=== PATIENT | female | born 1995 | race Caucasian/White ===

== ENCOUNTER 2018-10-13 11:02 | Emergency (ER) | payer BC, OTHER ==
[~2018-10-13] VITALS: Ht 165.1 cm; Wt 77.1 kg
--- OUTSIDE RECORDS SUMMARY | 2018-10-13 11:09 | XMS REPORT ---
Author Author Edelmira Huynh Organization [facility] Address [address] [place], [place] [id number] Care Team Providers Care Business Continuity Manager Name Role Phone Edelmira Huynh PCP Edelmira Huynh PreferredProvider Allergies and Adverse Reactions Name Reaction Notes NO KNOWN DRUG ALLERGIES Plan of Treatment Planned Activity Comments Planned Date Planned Time Plan/Goal Urine Culture, [place] Count 10/15/2015 12:00 AM HIV AG/AB COMBO 07/25/2018 12:00 AM CBC With Auto Differential 09/11/2014 12:00 AM CMP (comprehensive metabolic panel) 09/11/2014 12:00 AM CRP 09/11/2014 12:00 AM RF (rheumatoid factor) 09/11/2014 12:00 AM Medications Active Name Start Date Estimated Completion Date SIG Comments Augmentin 875-125 mg oral tablet 07/25/2018 08/01/2018 take 1 tablet by oral route every 12 hours for 7 days Name Start Date Expiration Date SIG Comments amoxicillin 250 mg oral tablet,chewable 06/14/2009 06/24/2009 chew 2 tablets (500 mg) by oral route every 12 hours for 10 days clobetasol 0.05 % topical gel 08/13/2009 08/27/2009 apply a thin layer by topical route 2 times per day to the affected area(s) for 14 days amoxicillin 400 mg/5 mL oral suspension for reconstitution 10/05/2009 10/15/2009 take 11 milliliters (880 mg) by oral route every 12 hours for 10 days Lortab Elixir 7.5-500 mg/15 mL oral solution 10/05/2009 10/12/2009 take 15 milliliters by oral route every 6 hours as needed for pain for 7 days Flexeril 5 mg oral tablet 01/25/2010 01/28/2010 take 1 tablet by oral route 2 times a day for 3 days Cortisporin 3.5-10,000-1 mg/mL-unit/mL-% otic drops,suspension 04/05/2010 04/12/2010 instill 4 drops into right ear by otic route 3 times per day for 7 days [id number]-[id number]-GR 3.5-10,000-1 mg/mL-unit/mL-% otic solution 05/12/2010 05/19/2010 INSTILL 4 DROPS IN RIGHT EARY THREE TIMES A DAY FOR 7 DAYS permethrin 5 % topical cream 09/06/2010 09/08/2010 apply (thoroughly massage into skin from head to soles of feet) by topical route once leave on for 8-14 hours and then remove by thorough washing triamcinolone acetonide 0.1 % topical cream 03/20/2011 03/27/2011 apply a thin layer to the affected area(s) by topical route 2 times per day for 7 days Depo-Provera intramuscular amoxicillin 500 mg oral capsule 03/11/2014 03/21/2014 take 1 capsule (500 mg) by oral route 3 times per day for 10 days azithromycin 250 mg oral tablet 07/21/2014 07/26/2014 take 2 tablets (500 mg) by oral route once daily for 1 day then 1 tablet (250 mg) by oral route once daily for 4 days Singulair 10 mg oral tablet 09/11/2014 take 1 tablet (10 mg) by oral route once daily in the evening Miralax 17 gram/dose oral powder 10/15/2015 take 17 gram mixed with 8 oz. water, juice, soda, coffee or tea by oral route once daily Tessalon Perles 100 mg oral capsule 12/01/2015 take 1 capsule (100 mg) by oral route 3 times per day as needed for cough hydrocortisone 2.5 % topical ointment 05/10/2016 apply a thin layer to the affected area(s) by topical route once daily pantoprazole 40 mg oral tablet,delayed release (DR/EC) 11/13/2017 take 1 tablet (40 mg) by oral route once daily Discontinued Name Start Date Discontinued Date SIG Comments Daytrana 30 mg/9 hr transdermal patch 24 hour 06/14/2009 08/29/2011 apply 1 patch by transdermal route daily prednisone 10 mg oral tablet 09/27/2010 03/20/2011 take 4 tabs x 2 days, 3 tabs x 2 days, 2 tabs x 2 day then 1 tab x 4 days. triamcinolone acetonide 0.5 % topical cream 08/29/2011 08/14/2012 apply a thin layer to the affected area(s) by topical route 2 times per day Reanna Allergy 180 mg oral tablet 06/03/2013 03/11/2014 take 1 tablet (180 mg) by oral route once daily Sudafed 12 Hour 120 mg oral tablet extended release 06/03/2013 07/17/2013 take 1 tablet (120 mg) by oral route every 12 hours Flonase 50 mcg/actuation nasal spray,suspension 07/17/2013 03/11/2014 inhale 1 spray (50 mcg) in each nostril by intranasal route once daily Medrol (Daniele) 4 mg oral tablets,dose pack 07/17/2013 03/11/2014 take as directed Claritin-D 12 Hour 5-120 mg oral tablet extended release 12 hr 03/11/2014 10/15/2015 take 1 tablet by oral route 2 times per day as needed cyclobenzaprine 10 mg oral tablet 10/15/2015 Sudafed 12 Hour 120 mg oral tablet extended release 07/21/2014 07/21/2014 take one tab every 12 hours as needed for nasal congestion Flonase Allergy Relief 50 mcg/actuation nasal spray,suspension 07/21/2014 09/11/2014 inhale 1 puff by nasal route daily guaifenesin 400 mg oral tablet 07/21/2014 09/11/2014 take 1 tablet by oral route every 6 hours as needed prednisone 20 mg oral tablet 09/11/2014 10/15/2015 take 1 tablet by oral route daily Flonase Allergy Relief 50 mcg/actuation nasal spray,suspension 09/21/2014 10/15/2015 inhale 1 puff by nasal route 2 times a day Problem List Description Status Onset ADHD Active Vital Signs Date Time BP-Sys(mm[Hg] BP-Hermelinda(mm[Hg]) HR(bpm) RR(rpm) Temp WT HT HC BMI BSA BMI Percentile O2 Sat(%) 07/25/2018 11:18:00 AM 116 mmHg 68 mmHg 74 bpm 16 rpm 97.7 F 168 lbs 65 in 27.9564 kg/m 1.8694 m 99 % 11/13/2017 9:51:00 AM 124 mmHg 74 mmHg 77 bpm 18 rpm 98.4 F 156.375 lbs 65 in 26.02 kg/m2 1.80 m2 99 % 10/15/2015 9:36:00 AM 124 mmHg 64 mmHg 76 bpm 18 rpm 97.9 F 171 lbs 65 in 28.4556 kg/m 1.8861 m 97 % 09/11/2014 9:51:00 AM 122 mmHg 64 mmHg 70 bpm 18 rpm 98.3 F 157.5 lbs 65 in 26.21 kg/m2 1.81 m2 98 % 07/21/2014 8:55:00 AM 124 mmHg 62 mmHg 101 bpm 18 rpm 98.7 F 158 lbs 65 in 26.2923 kg/m 1.8129 m 97 % 03/11/2014 2:42:00 PM 65 bpm 20 rpm 97.2 F 157.2 lbs 65 in 26.16 kg/m2 1.81 m2 0 % 98 % 07/17/2013 10:32:00 AM 124 mmHg 64 mmHg 90 bpm 18 rpm 97.2 F 139 lbs 65 in 23.1306 kg/m 1.7004 m 0 % 98 % 06/03/2013 8:42:00 AM 63 bpm 18 rpm 96.8 F 139.125 lbs 65 in 23.15 kg/m2 1.70 m2 65.4 % 98 % 12/11/2012 3:31:00 PM 122 mmHg 64 mmHg 76 bpm 18 rpm 97.6 F 127.5 lbs 65 in 21.2169 kg/m 1.6286 m 45 % 97 % 08/14/2012 3:17:00 PM 116 mmHg 70 mmHg 72 bpm 16 rpm 98.2 F 131 lbs 65 in 21.80 kg/m2 1.65 m2 53.1 % 08/29/2011 2:35:00 PM 118 mmHg 60 mmHg 68 bpm 18 rpm 98.4 F 130.25 lbs 65 in 21.6745 kg/m 1.6461 m 54.9 % 03/20/2011 3:07:00 PM 110 mmHg 58 mmHg 64 bpm 18 rpm 97.6 F 142.25 lbs 65 in 23.67 kg/m2 1.72 m2 75.2 % 09/27/2010 3:13:00 PM 120 mmHg 72 mmHg 63 bpm 16 rpm 96.6 F 143.5 lbs 97 % 09/06/2010 3:37:00 PM 110 mmHg 70 mmHg 66 bpm 18 rpm 96.7 F 135 lbs 99 % 04/05/2010 3:48:00 PM 118 mmHg 72 mmHg 72 bpm 20 rpm 97.3 F 146.375 lbs 01/25/2010 4:33:00 PM 100 mmHg 58 mmHg 72 bpm 16 rpm 97.8 F 142 lbs 10/05/2009 6:10:00 PM 108 mmHg 68 mmHg 100 bpm 20 rpm 99.1 F 130.25 lbs 08/13/2009 3:25:00 PM 108 mmHg 60 mmHg 60 bpm 20 rpm 98 F 130 lbs 06/29/2009 2:55:00 PM 94 mmHg 68 mmHg 72 bpm 24 rpm 97.5 F 128 lbs 64 in 21.9709 kg/m 1.6192 m 68 % 06/14/2009 10:46:00 AM 100 mmHg 64 mmHg 80 bpm 24 rpm 97.7 F 126 lbs 64 in 21.63 kg/m2 1.61 m2 64.9 % Social History Name Description Comments Alcohol Light Tobacco Current every day smoker 10/15/2015 - History of Procedures Date Ordered Description Order Status 03/20/2011 12:00 AM THER/PROPH/DIAG INJ SC/IM Reviewed 03/20/2011 12:00 AM Decadron 1 mg [facility]#[id number] (Trang) Reviewed 03/20/2011 12:00 AM Depo-Medrol 80 mg [facility]#[id number]-Gyelwyvo Reviewed 10/15/2015 9:48 AM URINE TEST Reviewed 10/15/2015 10:09 AM URINALYSIS AUTO W/O SCOPE Reviewed 10/15/2015 12:00 AM Decadron, Per 1 Mg [facility]# [address]-29 Reviewed 10/15/2015 12:00 AM Depo-Medrol 40mg Reviewed 10/15/2015 12:00 AM RADEX ABDOMEN COMPL W/DCBTS&/ERC VIEWS Reviewed 06/29/2009 12:00 AM Decadron Inj. 8mg- ([facility] #[address]-67 Reviewed 06/29/2009 12:00 AM Depo-Medrol 80 Mg Im/[facility]# [address]-92 Reviewed 09/14/2011 12:00 AM THER/PROPH/DIAG INJ SC/IM Reviewed 09/14/2011 12:00 AM Depo-Provera 150 Mg Reviewed 12/13/2011 12:00 AM THER/PROPH/DIAG INJ SC/IM Reviewed 12/13/2011 12:00 AM Depo-Provera 150 Mg Reviewed 03/05/2012 12:00 AM THER/PROPH/DIAG INJ SC/IM Reviewed 03/05/2012 12:00 AM Depo-Provera 150 Mg Reviewed 03/05/2012 12:00 AM URINE TEST Reviewed 06/12/2012 12:00 AM THER/PROPH/DIAG INJ SC/IM Reviewed 06/12/2012 12:00 AM Depo-Provera 150 Mg Reviewed 06/12/2012 12:00 AM URINE TEST Reviewed 08/14/2012 12:00 AM THER/PROPH/DIAG INJ SC/IM Reviewed 08/14/2012 12:00 AM Decadron, Per 1 Mg [facility]# [address]-73 Reviewed 08/14/2012 12:00 AM Depo-Medrol, Per 80 Mg [facility]#4675-9822-80 Reviewed 11/13/2017 12:00 AM COMPLETE CBC W/AUTO DIFF WBC Returned 11/13/2017 12:00 AM COMPREHEN METABOLIC PANEL Returned 09/06/2012 12:00 AM THER/PROPH/DIAG INJ SC/IM Reviewed 09/06/2012 12:00 AM Depo-Provera 150 Mg Reviewed 09/06/2012 12:00 AM URINE TEST Reviewed 12/11/2012 12:00 AM THER/PROPH/DIAG INJ SC/IM Reviewed 12/11/2012 12:00 AM Bicillin CR, 1.2 million units [facility]# 20592-851-48 Reviewed 12/11/2012 12:00 AM CHYLMD TRACH DNA AMP PROBE Reviewed 12/11/2012 12:00 AM N.GONORRHOEAE DNA AMP PROB Reviewed 12/26/2012 12:00 AM THER/PROPH/DIAG INJ SC/IM Reviewed 12/26/2012 12:00 AM Depo-Provera 150 mg Reviewed 07/25/2018 12:00 AM Decadron, Per 1 Mg [facility]# [address]-32 Reviewed 03/14/2013 12:00 AM THER/PROPH/DIAG INJ SC/IM Reviewed 03/14/2013 12:00 AM Depo-Provera 150 mg Reviewed 06/03/2013 12:00 AM THER/PROPH/DIAG INJ SC/IM Reviewed 06/03/2013 12:00 AM Decadron, Per 1 Mg [facility]# [address]-08 Reviewed 06/03/2013 12:00 AM Depo-Medrol, Per 80 Mg [facility]#6172-0241-83 Reviewed 06/03/2013 12:00 AM Depo Provera Injection, 150 mg Reviewed 10/05/2009 12:00 AM Bicillin CR (1.2) [facility]# [id number]--[facility] Reviewed 10/05/2009 12:00 AM THER/PROPH/DIAG INJ SC/IM Reviewed 09/01/2013 12:00 AM THER/PROPH/DIAG INJ SC/IM Reviewed 09/01/2013 12:00 AM Depo-Provera 150 mg Reviewed 12/17/2013 12:00 AM THER/PROPH/DIAG INJ SC/IM Reviewed 12/17/2013 12:00 AM Depo Provera Injection, 150 mg Reviewed 03/04/2014 12:00 AM Depo-Provera 150 mg Reviewed 07/21/2014 12:00 AM THER/PROPH/DIAG INJ SC/IM Reviewed 07/21/2014 12:00 AM Decadron, Per 1 Mg [facility]# [address]-96 Reviewed 07/21/2014 12:00 AM Depo-Medrol 40mg Reviewed 09/27/2010 12:00 AM IMMUNIZATION ADMIN Reviewed 09/27/2010 12:00 AM TD VACCINE NO PRSRV 7/> IM Reviewed 09/27/2010 12:00 AM THER/PROPH/DIAG INJ SC/IM Reviewed 09/27/2010 12:00 AM Depo-Medrol 120 Mg Im PAWEL Reviewed 09/01/2014 2:56 PM URINE TEST Reviewed 09/01/2014 12:00 AM THER/PROPH/DIAG INJ SC/IM Reviewed 09/01/2014 12:00 AM Depo Provera Injection, 150 mg Reviewed 12/24/2014 12:00 AM Depo Provera Injection, 150 mg Reviewed 12/24/2014 2:17 PM URINE TEST Reviewed Results Summary Date and Description Results 12/11/2012 5:46 PM SOURCE: URINE 09/01/2014 2:56 PM HCG Ur Ql neg 12/24/2014 2:17 PM Test, Urine Neg 10/15/2015 9:48 AM Test, Urine negative 10/15/2015 10:09 AM Clarity Ur clear Color Ur brown Glucose Ur-sCnc neg Bilirub Ur Ql Strip small Ketones Ur Ql Strip neg Sp Gr Ur Qn >=1.030 Hgb Ur Ql Strip small pH Ur-LsCnc 5.0 Prot Ur Ql Strip 30mg/dL Urobilinogen Ur-mCnc 0.2 E. U/dL Nitrite Ur Ql Strip neg WBC Est Ur Ql Strip Trace History Of Immunizations Name Date Admin Mfg Name Mfg Code Trade Name Lot# Route Inj Vis Given Vis Pub CVX Td 09/27/2010 sanofi pasteur PMC DECAVAC [id number] Intramuscular Left Deltoid 09/27/2010 12/13/2007 999 History of Past Illness Name Date of Onset Comments Allergic rhinitis ADHD Upper Respiratory Infection, Acute Jun 14 2009 10:56AM ADHD Jun 14 2009 10:56AM Contact Dermatitis Jun 29 2009 3:01PM Concussion With Loss Of Consciousness Jun 29 2009 3:01PM Postnasal drip Jun 29 2009 3:01PM Atopic Dermatitis Aug 13 2009 3:31PM Neck Sprain/Strain Aug 13 2009 3:31PM Acute Pharyngitis Oct 05 2009 6:11PM Otitis Media/Acute Suppurative Oct 05 2009 6:11PM Back Muscle Spasm Jan 25 2010 4:40PM Otitis Externa, Acute Apr 05 2010 3:47PM Contact Dermatitis Sep 06 2010 3:39PM Scabies Exposure Sep 06 2010 3:39PM Contact Dermatitis Sep 27 2010 3:13PM Poison Susan Sep 27 2010 3:13PM Contact Dermatitis Mar 20 2011 3:03PM Rash Of Skin Aug 29 2011 2:37PM Contraceptive Counseling Aug 29 2011 2:37PM Rhinitis, Allergic Aug 29 2011 2:37PM Contraceptive counseling (Depo-Provera) Sep 14 2011 3:18PM Contraceptive Management Sep 14 2011 3:18PM Contraceptive counseling (Depo-Provera) Dec 13 2011 2:47PM Contraceptive counseling (Depo-Provera) Mar 05 2012 4:52PM Contraceptive counseling (Depo-Provera) Jun 12 2012 4:16PM Rash Of Skin Aug 14 2012 3:19PM Contraceptive counseling (Depo-Provera) Sep 06 2012 2:49PM Upper Respiratory Infections Dec 11 2012 3:33PM High-Risk Sexual Behavior Dec 11 2012 3:33PM Contraceptive Counseling Dec 11 2012 3:33PM Contraceptive counseling (Depo-Provera) Dec 26 2012 11:56AM Contraceptive counseling (Depo-Provera) Mar 14 2013 4:41PM Rhinitis, Allergic Jun 03 2013 8:45AM Contraceptive Management Jun 03 2013 8:45AM Rhinitis, Allergic Jul 17 2013 10:34AM Contraceptive counseling (Depo-Provera) Sep 01 2013 4:10PM Contraceptive counseling (Depo-Provera) Dec 17 2013 4:39PM Contraceptive counseling (Depo-Provera) Mar 04 2014 1:44PM Sinusitis, Acute Mar 11 2014 2:43PM Sinusitis Jul 21 2014 8:57AM Contraceptive counseling (Depo-Provera) Sep 01 2014 2:56PM Joint pain Sep 11 2014 9:53AM Fatigue Sep 11 2014 9:53AM Contact dermatitis Sep 11 2014 9:53AM Contraception management Dec 24 2014 2:17PM Left lower quadrant pain Oct 15 2015 9:38AM Nausea Oct 15 2015 9:38AM Diarrhea Oct 15 2015 9:38AM Allergic rhinitis, unspecified allergic rhinitis type Oct 15 2015 9:38AM Epigastric pain Nov 13 2017 9:53AM Hematemesis Nov 13 2017 9:53AM Reflux gastritis Nov 13 2017 9:53AM Acute sinusitis Jul 25 2018 11:20AM Exposure to HIV Jul 25 2018 11:20AM Payers Insurance Name Company Name Plan Name Plan Number Policy Number Policy Group Number Start Date [facility] [id number] [facility] [id number] [id number], 2007 History of Encounters Visit Date Visit Type Provider 07/25/2018 Office visit Edelmira Huynh ROOFING TECHNICIAN 11/13/2017 Office visit Edelmira Huynh ROOFING TECHNICIAN 10/15/2015 Office visit Edelmira Huynh ROOFING TECHNICIAN 12/24/2014 Nurse visit Edelmira Huynh ROOFING TECHNICIAN 12/09/2014 Voided Edelmira Huynh ROOFING TECHNICIAN 09/11/2014 Office visit Edelmira Huynh ROOFING TECHNICIAN 09/01/2014 Nurse visit Edelmira Huynh ROOFING TECHNICIAN 07/21/2014 Office visit 07/21/2014 Office visit Edelmira Huynh ROOFING TECHNICIAN 03/11/2014 Office visit Holly Ellis ROOFING TECHNICIAN 03/04/2014 Nurse visit Bernardo Walker ROOFING TECHNICIAN 12/17/2013 Nurse visit Edelmira Huynh ROOFING TECHNICIAN 09/01/2013 Nurse visit Edelmira Huynh ROOFING TECHNICIAN 07/17/2013 Office visit Edelmira Huynh ROOFING TECHNICIAN 06/03/2013 Office visit Edelmira Huynh ROOFING TECHNICIAN 03/14/2013 Nurse visit Bernardo Walker ROOFING TECHNICIAN 12/26/2012 Nurse visit Edelmira Huynh ROOFING TECHNICIAN 12/11/2012 Office visit Edelmira Huynh ROOFING TECHNICIAN 09/06/2012 Nurse visit Holly Ellis ROOFING TECHNICIAN 08/14/2012 Office visit Holly Ellis ROOFING TECHNICIAN 06/12/2012 Nurse visit Holly Ellis ROOFING TECHNICIAN 06/12/2012 Voided Edelmira Huynh ROOFING TECHNICIAN 03/05/2012 Nurse visit Edelmira Huynh ROOFING TECHNICIAN 12/13/2011 Nurse visit Edelmira Huynh ROOFING TECHNICIAN 09/14/2011 Nurse visit Edelmira Huynh ROOFING TECHNICIAN 08/29/2011 Office visit Edelmira Huynh ROOFING TECHNICIAN 03/20/2011 Office visit Edelmira Huynh ROOFING TECHNICIAN 09/27/2010 Office visit Marcela Camarena MD 09/06/2010 Office visit Edelmira Huynh ROOFING TECHNICIAN 04/05/2010 Office visit Maira SMITH 01/25/2010 Office visit Sonia LEON 10/05/2009 Office visit Sonai LEON 08/13/2009 Office visit Terrie SMITH 06/29/2009 Office visit Terrie SMITH 06/14/2009 Office visit Terrie SMITH 03/10/2009 Office visit Maira SMITH
--- OUTSIDE RECORDS SUMMARY | 2018-10-13 11:09 | XMS REPORT ---
Author Edelmira Jenkins Organization [facility] Address [address] [place], [place] [id number] Care Team Providers Care Airplane Rental Clerk Name Role Phone Edelmira Huynh PCP Unavailable Allergies and Adverse Reactions Name Reaction Notes NO KNOWN DRUG ALLERGIES Plan of Treatment Planned Activity Comments Planned Date Planned Time Plan/Goal X-RAY EXAM OF ABDOMEN 10/15/2015 12:00 AM THER/PROPH/DIAG INJ SC/IM 09/14/2011 12:00 AM THER/PROPH/DIAG INJ SC/IM 03/05/2012 12:00 AM THER/PROPH/DIAG INJ SC/IM 06/12/2012 12:00 AM COMPLETE CBC W/AUTO DIFF WBC 09/11/2014 12:00 AM COMPREHEN METABOLIC PANEL 09/11/2014 12:00 AM C-REACTIVE PROTEIN 09/11/2014 12:00 AM RHEUMATOID FACTOR QUANT 09/11/2014 12:00 AM Medications Active Name Start Date Estimated Completion Date SIG Comments Depo-Provera intramuscular Singulair 10 mg oral tablet 09/11/2014 take 1 tablet (10 mg) by oral route once daily in the evening Miralax 17 gram/dose oral powder 10/15/2015 take 17 gram mixed with 8 oz. water, juice, soda, coffee or tea by oral route once daily Name Start Date Expiration Date SIG Comments [...] 3 times per day for 7 days [id number]-LT 3.5-10,000-1 mg/mL-unit/mL-% otic solution 05/12/2010 05/19/2010 INSTILL [...] 2 times per day for 7 days amoxicillin 500 mg oral capsule 03/11/2014 03/21/2014 take 1 capsule (500 mg) by oral route 3 times per day for 10 days azithromycin 250 mg oral tablet 07/21/2014 07/26/2014 take 2 tablets (500 mg) by oral route once daily for 1 day then 1 tablet (250 mg) by oral route once daily for 4 days Discontinued Name Start Date Discontinued Date SIG [...] HC BMI BSA BMI Percentile O2 Sat(%) 10/15/2015 9:36:00 AM 124 mmHg 64 mmHg 76 bpm 18 rpm 97.9 F 171 lbs 65 in 28.46 kg/m2 1.89 m2 97 % 09/11/2014 9:51:00 AM 122 mmHg 64 mmHg 70 bpm 18 rpm 98.3 F 157.5 lbs 65 in 26.2091 kg/m 1.8101 m 98 % 07/21/2014 8:55:00 AM 124 mmHg 62 mmHg 101 bpm 18 rpm 98.7 F 158 lbs 65 in 26.29 kg/m2 1.81 m2 97 % 03/11/2014 2:42:00 PM 65 bpm 20 rpm 97.2 F 157.2 lbs 65 in 26.1592 kg/m 1.8084 m 0 % 98 % 07/17/2013 10:32:00 AM 124 mmHg 64 mmHg 90 bpm 18 rpm 97.2 F 139 lbs 65 in 23.13 kg/m2 1.70 m2 0 % 98 % 06/03/2013 8:42:00 AM 63 bpm 18 rpm 96.8 F 139.125 lbs 65 in 23.1514 kg/m 1.7012 m 65.4 % 98 % 12/11/2012 3:31:00 PM 122 mmHg 64 mmHg 76 bpm 18 rpm 97.6 F 127.5 lbs 65 in 21.22 kg/m2 1.63 m2 45 % 97 % 08/14/2012 3:17:00 PM 116 mmHg 70 mmHg 72 bpm 16 rpm 98.2 F 131 lbs 65 in 21.7993 kg/m 1.6508 m 53.1 % 08/29/2011 2:35:00 PM 118 mmHg 60 mmHg 68 bpm 18 rpm 98.4 F 130.25 lbs 65 in 21.67 kg/m2 1.65 m2 54.9 % 03/20/2011 3:07:00 PM 110 mmHg 58 mmHg 64 bpm 18 rpm 97.6 F 142.25 lbs 65 in 23.6714 kg/m 1.7202 m 75.2 % 09/27/2010 3:13:00 PM 120 mmHg [...] rpm 97.5 F 128 lbs 64 in 21.97 kg/m2 1.62 m2 68 % 06/14/2009 10:46:00 AM 100 mmHg 64 mmHg 80 bpm 24 rpm 97.7 F 126 lbs 64 in 21.6276 kg/m 1.6065 m 64.9 % Social History Name Description Comments Tobacco Never smoker 10/15/2015 - History of Procedures Date Ordered Description Order Status 03/20/2011 12:00 AM THER/PROPH/DIAG INJ SC/IM Reviewed 03/20/2011 12:00 AM Decadron [address] [facility]#[id number] (Trang) Reviewed 03/20/2011 12:00 AM Depo-Medrol [address] [facility]#[id number]-Hlclfeci Reviewed 10/15/2015 9:48 AM URINE TEST Reviewed 10/15/2015 10:09 AM URINALYSIS AUTO W/O SCOPE Reviewed 10/15/2015 12:00 AM Decadron, Per [address] [facility]# [address]-98 Reviewed 06/29/2009 12:00 AM Decadron Inj. 8mg- ([facility] #[id number] Reviewed 06/29/2009 12:00 AM Depo-Medrol 80 Mg Im/[facility]# [address]-76 Reviewed 09/14/2011 12:00 AM Depo-Provera 150 Mg Reviewed 12/13/2011 12:00 AM THER/PROPH/DIAG INJ SC/IM Reviewed 12/13/2011 12:00 AM Depo-Provera 150 Mg Reviewed 03/05/2012 12:00 AM URINE TEST Reviewed 06/12/2012 12:00 AM URINE TEST Reviewed 08/14/2012 12:00 AM THER/PROPH/DIAG INJ SC/IM Reviewed 08/14/2012 12:00 AM Decadron, Per [address] [facility]# [address]-32 Reviewed 08/14/2012 12:00 AM Depo-Medrol, Per [address] [facility]#[id number] Reviewed 09/06/2012 12:00 AM THER/PROPH/DIAG INJ SC/IM Reviewed 09/06/2012 12:00 AM Depo-Provera 150 Mg Reviewed 09/06/2012 12:00 AM URINE TEST Reviewed 12/11/2012 12:00 AM THER/PROPH/DIAG INJ SC/IM Reviewed 12/11/2012 12:00 AM Bicillin CR, 1.[address] [facility]# 26621-623-91 Reviewed 12/11/2012 12:00 AM CHYLMD TRACH DNA AMP PROBE Returned 12/11/2012 12:00 AM N.GONORRHOEAE DNA AMP PROB Returned 12/26/2012 12:00 AM THER/PROPH/DIAG INJ SC/IM Reviewed 12/26/2012 12:00 AM Depo-Provera 150 mg Reviewed 03/14/2013 12:00 AM THER/PROPH/DIAG INJ SC/IM Reviewed 03/14/2013 12:00 AM Depo-Provera 150 mg Reviewed 06/03/2013 12:00 AM THER/PROPH/DIAG INJ SC/IM Reviewed 06/03/2013 12:00 AM Decadron, Per [address] [facility]# [address]-73 Reviewed 06/03/2013 12:00 AM Depo-Medrol, Per [address] [facility]#8012-7804-08 Reviewed 06/03/2013 12:00 AM Depo Provera Injection, 150 mg Reviewed 10/05/2009 12:00 AM Bicillin CR (1.2) [facility]# [id number]--[facility] Reviewed 10/05/2009 12:00 AM THER/PROPH/DIAG INJ SC/IM Reviewed 09/01/2013 12:00 AM THER/PROPH/DIAG INJ SC/IM Reviewed 09/01/2013 12:00 AM Depo-Provera 150 mg Reviewed 12/17/2013 12:00 AM THER/PROPH/DIAG INJ SC/IM Reviewed 12/17/2013 12:00 AM Depo Provera Injection, 150 mg Reviewed 07/21/2014 12:00 AM THER/PROPH/DIAG INJ SC/IM Reviewed 07/21/2014 12:00 AM Decadron, Per [address] [facility]# [id number] Reviewed 07/21/2014 12:00 AM Depo-Medrol 40mg Reviewed [...] 2:17 PM URINE TEST Reviewed Results Summary Data and Description Results 09/01/2014 2:56 PM HCG Ur Ql neg [...] CVX Td 09/27/2010 sanofi pasteur PMC DECAVAC [id number] Intramuscular Left Deltoid 09/27/2010 12/13/2007 999 History [...] allergic rhinitis type Oct 15 2015 9:38AM Payers Insurance Name Company Name Plan Name Plan Number Policy Number Policy Group Number Start Date [facility] [id number] Monday, 2007 History of Encounters Visit Date Visit Type Provider 10/15/2015 Office visit Edelmira Huynh RECORDS MANAGEMENT ANALYST 12/24/2014 Nurse visit Edelmira Huynh RECORDS MANAGEMENT ANALYST 12/09/2014 Voided Edelmira Huynh RECORDS MANAGEMENT ANALYST 09/11/2014 Office visit Edelmira Huynh RECORDS MANAGEMENT ANALYST 09/01/2014 Nurse visit Edelmira Huynh RECORDS MANAGEMENT ANALYST 07/21/2014 Office visit 07/21/2014 Office visit Edelmira Huynh RECORDS MANAGEMENT ANALYST 03/11/2014 Office visit Holly Ellis RECORDS MANAGEMENT ANALYST 03/04/2014 Nurse visit Bernardo Walker RECORDS MANAGEMENT ANALYST 12/17/2013 Nurse visit Edelmira Huynh RECORDS MANAGEMENT ANALYST 09/01/2013 Nurse visit Edelmira Huynh RECORDS MANAGEMENT ANALYST 07/17/2013 Office visit Edelmira Huynh RECORDS MANAGEMENT ANALYST 06/03/2013 Office visit Edelmira Huynh RECORDS MANAGEMENT ANALYST 03/14/2013 Nurse visit Bernardo Walker RECORDS MANAGEMENT ANALYST 12/26/2012 Nurse visit Edelmira Huynh RECORDS MANAGEMENT ANALYST 12/11/2012 Office visit Edelmira Huynh RECORDS MANAGEMENT ANALYST 09/06/2012 Nurse visit Holly Ellis RECORDS MANAGEMENT ANALYST 08/14/2012 Office visit Holly Ellis RECORDS MANAGEMENT ANALYST 06/12/2012 Nurse visit Holly Ellis RECORDS MANAGEMENT ANALYST 06/12/2012 Voided Edelmira Huynh RECORDS MANAGEMENT ANALYST 03/05/2012 Nurse visit Edelmira Huynh RECORDS MANAGEMENT ANALYST 12/13/2011 Nurse visit Edelmira Huynh RECORDS MANAGEMENT ANALYST 09/14/2011 Nurse visit Edelmira Huynh RECORDS MANAGEMENT ANALYST 08/29/2011 Office visit Edelmira Huynh RECORDS MANAGEMENT ANALYST 03/20/2011 Office visit Edelmira Huynh RECORDS MANAGEMENT ANALYST 09/27/2010 Office visit Marcela Camarena MD 09/06/2010 Office visit Edelmira Huynh RECORDS MANAGEMENT ANALYST 04/05/2010 Office visit Maira SMITH 01/25/2010 Office visit Sonia LEON 10/05/2009 Office visit Sonia LEON 08/13/2009 Office visit Terrie SMITH 06/29/2009 Office visit Terrie SMITH 06/14/2009 Office visit Terrie SMITH 03/10/2009 Office visit Maira SMITH
--- OUTSIDE RECORDS SUMMARY | 2018-10-13 11:10 | XMS REPORT ---
Author Author [facility] Organization [facility] Address [address] [place], [place] [address] Care Team Providers Care Profiling Machine Set Up Operator Name Role Phone PCP Unavailable Allergies and Adverse Reactions Name Reaction Notes NO KNOWN DRUG ALLERGIES Plan of Treatment Planned Activity Comments Planned Date Planned Time Plan/Goal COMPLETE CBC W/AUTO DIFF WBC 09/11/2014 12:00 AM COMPREHEN METABOLIC PANEL 09/11/2014 12:00 AM C-REACTIVE PROTEIN 09/11/2014 12:00 AM RHEUMATOID FACTOR QUANT 09/11/2014 12:00 AM Medications Active Name Start Date Estimated Completion Date SIG Comments Depo-Provera intramuscular Claritin-D 12 Hour oral tablet extended release 12 hr 5-120 mg 03/11/2014 take 1 tablet by oral route 2 times per day as needed cyclobenzaprine oral tablet 10 mg prednisone oral tablet 20 mg 09/11/2014 take 1 tablet by oral route daily Singulair oral tablet 10 mg 09/11/2014 take 1 tablet (10 mg) by oral route once daily in the evening Name Start Date Expiration Date SIG Comments Amoxicillin Oral Tablet, Chewable 250 mg 06/14/2009 06/24/2009 chew 2 tablets (500 mg) by oral route every 12 hours for 10 days Clobetasol Topical Gel 0.05 % 08/13/2009 08/27/2009 apply a thin layer by topical route 2 times per day to the affected area(s) for 14 days Amoxicillin Oral Suspension for Reconstitution 400 mg/5 mL 10/05/2009 10/15/2009 take 11 milliliters (880 mg) by oral route every 12 hours for 10 days Lortab Elixir Oral Solution 7.5-500 mg/15 mL 10/05/2009 10/12/2009 take 15 milliliters by oral route every 6 hours as needed for pain for 7 days Flexeril Oral Tablet 5 mg 01/25/2010 01/28/2010 take 1 tablet by oral route 2 times a day for 3 days Cortisporin Otic Drops, Suspension 3.5-10,000-1 mg-unit/mL-% 04/05/2010 04/12/2010 instill 4 drops into right ear by otic route 3 times per day for 7 days [id number] Otic Solution 3.5-10,000-1 mg-unit/mL- % 05/12/2010 05/19/2010 INSTILL 4 DROPS IN RIGHT EARY THREE TIMES A DAY FOR 7 DAYS permethrin Topical Cream 5 % 09/06/2010 09/08/2010 apply (thoroughly massage into skin from head to soles of feet) by topical route once leave on for 8-14 hours and then remove by thorough washing triamcinolone acetonide Topical Cream 0.1 % 03/20/2011 03/27/2011 apply a thin layer to the affected area(s) by topical route 2 times per day for 7 days amoxicillin oral capsule 500 mg 03/11/2014 03/21/2014 take 1 capsule (500 mg) by oral route 3 times per day for 10 days azithromycin oral tablet 250 mg 07/21/2014 07/26/2014 take 2 tablets (500 mg) by oral route once daily for 1 day then 1 tablet (250 mg) by oral route once daily for 4 days Discontinued Name Start Date Discontinued Date SIG Comments Daytrana Transdermal Patch 24 hr 30 mg/9 06/14/2009 08/29/2011 apply 1 patch by transdermal route daily prednisone Oral Tablet 10 mg 09/27/2010 03/20/2011 take 4 tabs x 2 days, 3 tabs x 2 days, 2 tabs x 2 day then 1 tab x 4 days. triamcinolone acetonide Topical Cream 0.5 % 08/29/2011 08/14/2012 apply a thin layer to the affected area(s) by topical route 2 times per day Reanna Allergy oral tablet 180 mg 06/03/2013 03/11/2014 take 1 tablet (180 mg) by oral route once daily Sudafed 12 Hour oral tablet extended release 120 mg 06/03/2013 07/17/2013 take 1 tablet (120 mg) by oral route every 12 hours Flonase nasal spray,suspension 50 mcg/actuation 07/17/2013 03/11/2014 inhale 1 spray (50 mcg) in each nostril by intranasal route once daily Medrol (Daniele) oral tablets,dose pack 4 mg 07/17/2013 03/11/2014 take as directed Sudafed 12 Hour oral tablet extended release 120 mg 07/21/2014 07/21/2014 take one tab every 12 hours as needed for nasal congestion Flonase Allergy Relief nasal spray,suspension 50 mcg/actuation 07/21/2014 09/11/2014 inhale 1 puff by nasal route daily guaifenesin oral tablet 400 mg 07/21/2014 09/11/2014 take 1 tablet by oral route every 6 hours as needed Problem List Description Status Onset ADHD Active Vital Signs Date Time BP-Sys(mm[Hg] BP-Hermelinda(mm[Hg]) HR(bpm) RR(rpm) Temp WT HT HC BMI BSA BMI Percentile O2 Sat(%) 09/11/2014 9:51:00 AM 122 mmHg 64 mmHg [...] 64.9 % Social History Name Description Comments Student (High school ) Tobacco Never smoker History of Procedures Date Ordered Description Order Status 03/20/2011 12:00 AM THER/PROPH/DIAG INJ SC/IM Reviewed 12/13/2011 12:00 AM THER/PROPH/DIAG INJ SC/IM Reviewed 03/05/2012 12:00 AM URINE TEST Reviewed 06/12/2012 12:00 AM URINE TEST Reviewed 08/14/2012 12:00 AM THER/PROPH/DIAG INJ SC/IM Reviewed 09/06/2012 12:00 AM THER/PROPH/DIAG INJ SC/IM Reviewed 09/06/2012 12:00 AM URINE TEST Reviewed 12/11/2012 12:00 AM THER/PROPH/DIAG INJ SC/IM Reviewed 12/11/2012 12:00 AM CHYLMD TRACH DNA AMP PROBE Returned 12/11/2012 12:00 AM N.GONORRHOEAE DNA AMP PROB Returned 12/26/2012 12:00 AM THER/PROPH/DIAG INJ SC/IM Reviewed 03/14/2013 12:00 AM THER/PROPH/DIAG INJ SC/IM Reviewed 06/03/2013 12:00 AM THER/PROPH/DIAG INJ SC/IM Reviewed 10/05/2009 12:00 AM THER/PROPH/DIAG INJ SC/IM Reviewed 09/01/2013 12:00 AM THER/PROPH/DIAG INJ SC/IM Reviewed 12/17/2013 12:00 AM THER/PROPH/DIAG INJ SC/IM Reviewed 07/21/2014 12:00 AM THER/PROPH/DIAG INJ SC/IM Reviewed 09/27/2010 12:00 AM IMMUNIZATION ADMIN Reviewed 09/27/2010 12:00 AM TD VACCINE NO PRSRV 7/> IM Reviewed 09/27/2010 12:00 AM THER/PROPH/DIAG INJ SC/IM Reviewed 09/01/2014 2:56 PM URINE TEST Reviewed 09/01/2014 12:00 AM THER/PROPH/DIAG INJ SC/IM Reviewed Results Summary Data and Description Results 09/01/2014 2:56 PM HCG Ur Ql neg History Of Immunizations Name Date Admin Mfg Name Mfg Code Trade Name Lot# Route Inj Vis Given Vis Pub CVX Td 09/27/2010 sanofi pasteur PMC DECAVAC [id number] Intramuscular Left Deltoid 09/27/2010 12/13/2007 999 History of Past Illness Name Date of Onset Comments Allergic Rhinitis ADHD Upper Respiratory Infection, Acute Jun 14 [...] 9:53AM Contact dermatitis Sep 11 2014 9:53AM Payers Insurance Name Company Name Plan Name Plan Number Policy Number Policy Group Number Start Date [facility] [id number] Monday, 2007 History of Encounters Visit Date Visit Type Provider 09/11/2014 Office visit Edelmira Huynh BIOMEDICAL ENGINEERING AIDE 09/01/2014 Nurse visit Edelmira Huynh BIOMEDICAL ENGINEERING AIDE 07/21/2014 Office visit Edelmira Huynh BIOMEDICAL ENGINEERING AIDE 03/11/2014 Office visit Holly Ellis BIOMEDICAL ENGINEERING AIDE 03/04/2014 Nurse visit Bernardo Walker BIOMEDICAL ENGINEERING AIDE 12/17/2013 Nurse visit Edelmira Huynh BIOMEDICAL ENGINEERING AIDE 09/01/2013 Nurse visit Edelmira Huynh BIOMEDICAL ENGINEERING AIDE 07/17/2013 Office visit Edelmira Huynh BIOMEDICAL ENGINEERING AIDE 06/03/2013 Office visit Edelmira Huynh BIOMEDICAL ENGINEERING AIDE 03/14/2013 Nurse visit Bernardo Walker BIOMEDICAL ENGINEERING AIDE 12/26/2012 Nurse visit Edelmira Huynh BIOMEDICAL ENGINEERING AIDE 12/11/2012 Office visit Edelmira Huynh BIOMEDICAL ENGINEERING AIDE 09/06/2012 Nurse visit Holly Ellis BIOMEDICAL ENGINEERING AIDE 08/14/2012 Office visit Holly Ellis BIOMEDICAL ENGINEERING AIDE 06/12/2012 Voided Edelmira Huynh BIOMEDICAL ENGINEERING AIDE 06/12/2012 Nurse visit Holly Ellis BIOMEDICAL ENGINEERING AIDE 03/05/2012 Nurse visit Edelmira Huynh BIOMEDICAL ENGINEERING AIDE 12/13/2011 Nurse visit Edelmira Huynh BIOMEDICAL ENGINEERING AIDE 09/14/2011 Nurse visit Edelmira Huynh BIOMEDICAL ENGINEERING AIDE 08/29/2011 Office visit Edelmira Huynh BIOMEDICAL ENGINEERING AIDE 03/20/2011 Office visit Edelmira Huynh BIOMEDICAL ENGINEERING AIDE 09/27/2010 Office visit Marcela Camarena MD 09/06/2010 Office visit Edelmira Lino BIOMEDICAL ENGINEERING AIDE 04/05/2010 Office visit Maira SMITH 01/25/2010 Office visit Sonia LEON 10/05/2009 Office visit Sonia LEON 08/13/2009 Office visit Terrie SMITH 06/29/2009 Office visit Terrie SMITH 06/14/2009 Office visit Terrie SMITH 03/10/2009 Office visit Maira SMITH
--- OUTSIDE RECORDS SUMMARY | 2018-10-13 11:10 | XMS REPORT ---
Author Edelmira Jenkins Organization [facility] Address [address] [place], [place] [address] Care Team Providers Care Aix Administrator Name Role Phone Edelmira Huynh PCP Unavailable Allergies and Adverse Reactions Name Reaction Notes NO KNOWN DRUG ALLERGIES Plan of Treatment Planned Activity Comments Planned Date Planned Time Plan/Goal URINE CULTURE/COLONY COUNT 10/15/2015 12:00 AM X-RAY EXAM OF ABDOMEN 10/15/2015 12:00 AM [...] 3 times per day for 7 days [id number]-cwaekdtqz-OT 3.5-10,000-1 mg/mL-unit/mL-% otic solution 05/12/2010 05/19/2010 INSTILL [...] Reviewed 03/20/2011 12:00 AM Decadron 1 mg [facility]#[id number] (Trang) Reviewed 03/20/2011 12:00 AM Depo-Medrol 80 mg [facility]#[id number]-Vqiuvdah Reviewed 10/15/2015 9:48 AM URINE TEST Reviewed 10/15/2015 10:09 AM URINALYSIS AUTO W/O SCOPE Reviewed 10/15/2015 12:00 AM Decadron, Per 1 Mg [facility]# [address]-49 Reviewed 10/15/2015 12:00 AM Depo-Medrol 40mg Reviewed 06/29/2009 12:00 AM Decadron Inj. 8mg- ([facility] #[address]-34 Reviewed 06/29/2009 12:00 AM Depo-Medrol 80 Mg Im/[facility]# [address]-36 Reviewed 09/14/2011 12:00 AM Depo-Provera 150 Mg Reviewed 12/13/2011 12:00 AM THER/PROPH/DIAG INJ SC/IM Reviewed 12/13/2011 12:00 AM Depo-Provera 150 Mg Reviewed 03/05/2012 12:00 AM URINE TEST Reviewed 06/12/2012 12:00 AM URINE TEST Reviewed 08/14/2012 12:00 AM THER/PROPH/DIAG INJ SC/IM Reviewed 08/14/2012 12:00 AM Decadron, Per 1 Mg [facility]# [address]-77 Reviewed 08/14/2012 12:00 AM Depo-Medrol, Per 80 Mg [facility]#7687-4059-66 Reviewed 09/06/2012 12:00 AM THER/PROPH/DIAG INJ SC/IM Reviewed 09/06/2012 12:00 AM Depo-Provera 150 Mg Reviewed 09/06/2012 12:00 AM URINE TEST Reviewed 12/11/2012 12:00 AM THER/PROPH/DIAG INJ SC/IM Reviewed 12/11/2012 12:00 AM Bicillin CR, 1.2 million units [facility]# 64097-012-86 Reviewed 12/11/2012 12:00 AM CHYLMD TRACH DNA AMP PROBE Returned 12/11/2012 12:00 AM N.GONORRHOEAE DNA AMP PROB Returned 12/26/2012 12:00 AM THER/PROPH/DIAG INJ SC/IM Reviewed 12/26/2012 12:00 AM Depo-Provera 150 mg Reviewed 03/14/2013 12:00 AM THER/PROPH/DIAG INJ SC/IM Reviewed 03/14/2013 12:00 AM Depo-Provera 150 mg Reviewed 06/03/2013 12:00 AM THER/PROPH/DIAG INJ SC/IM Reviewed 06/03/2013 12:00 AM Decadron, Per 1 Mg [facility]# [address]-24 Reviewed 06/03/2013 12:00 AM Depo-Medrol, Per 80 Mg [facility]#7854-6829-06 Reviewed 06/03/2013 12:00 AM Depo Provera Injection, 150 mg Reviewed 10/05/2009 12:00 AM Bicillin CR (1.2) [facility]# [id number]--[facility] Reviewed 10/05/2009 12:00 AM THER/PROPH/DIAG INJ SC/IM Reviewed 09/01/2013 12:00 AM THER/PROPH/DIAG INJ SC/IM Reviewed 09/01/2013 12:00 AM Depo-Provera 150 mg Reviewed 12/17/2013 12:00 AM THER/PROPH/DIAG INJ SC/IM Reviewed 12/17/2013 12:00 AM Depo Provera Injection, 150 mg Reviewed 07/21/2014 12:00 AM THER/PROPH/DIAG INJ SC/IM Reviewed 07/21/2014 12:00 AM Decadron, Per 1 Mg [facility]# [address]-48 Reviewed 07/21/2014 12:00 AM Depo-Medrol 40mg Reviewed [...] CVX Td 09/27/2010 sanofi pasteur PMC DECAVAC [id number] Intramuscular Left Deltoid 09/27/2010 12/13/2007 999 History [...] Policy Number Policy Group Number Start Date [facility] [id number] Monday, 2007 History of Encounters Visit Date Visit Type Provider 10/15/2015 Office visit Edelmira Huynh QUAL RESEARCH MANAGER 12/24/2014 Nurse visit Edelmira Huynh QUAL RESEARCH MANAGER 12/09/2014 Voided Edelmira Huynh QUAL RESEARCH MANAGER 09/11/2014 Office visit Edelmira Huynh QUAL RESEARCH MANAGER 09/01/2014 Nurse visit Edelmira Huynh QUAL RESEARCH MANAGER 07/21/2014 Office visit 07/21/2014 Office visit Edelmira Huynh QUAL RESEARCH MANAGER 03/11/2014 Office visit Holly Ellis QUAL RESEARCH MANAGER 03/04/2014 Nurse visit Bernardo Walker QUAL RESEARCH MANAGER 12/17/2013 Nurse visit Edelmira Huynh QUAL RESEARCH MANAGER 09/01/2013 Nurse visit Edelmira Huynh QUAL RESEARCH MANAGER 07/17/2013 Office visit Edelmira Huynh QUAL RESEARCH MANAGER 06/03/2013 Office visit Edelmira Huynh QUAL RESEARCH MANAGER 03/14/2013 Nurse visit Bernardo Walker QUAL RESEARCH MANAGER 12/26/2012 Nurse visit Edelmira Huynh QUAL RESEARCH MANAGER 12/11/2012 Office visit Edelmira Huynh QUAL RESEARCH MANAGER 09/06/2012 Nurse visit Holly Ellis QUAL RESEARCH MANAGER 08/14/2012 Office visit Holly Ellis QUAL RESEARCH MANAGER 06/12/2012 Nurse visit Holly Ellis QUAL RESEARCH MANAGER 06/12/2012 Voided Edelmira Huynh QUAL RESEARCH MANAGER 03/05/2012 Nurse visit Edelmira Huynh QUAL RESEARCH MANAGER 12/13/2011 Nurse visit Edelmira Huynh QUAL RESEARCH MANAGER 09/14/2011 Nurse visit Edelmira Huynh QUAL RESEARCH MANAGER 08/29/2011 Office visit Edelmira Huynh QUAL RESEARCH MANAGER 03/20/2011 Office visit Edelmira Huynh QUAL RESEARCH MANAGER 09/27/2010 Office visit Marcela Camarena MD 09/06/2010 Office visit Edelmira Huynh QUAL RESEARCH MANAGER 04/05/2010 Office visit Maira SMITH 01/25/2010 Office visit Sonia LEON 10/05/2009 Office visit Sonia LEON 08/13/2009 Office visit Terrie SMITH 06/29/2009 Office visit Terrie SMITH 06/14/2009 Office visit Terrie SMITH 03/10/2009 Office visit Maira SMITH
--- OUTSIDE RECORDS SUMMARY | 2018-10-13 11:11 | XMS REPORT ---
Author Author [facility] Organization [facility] Address [address] [place], [place] [id number] Care Team Providers Care Crayon Sorting Machine Feeder Name Role Phone PCP Unavailable Allergies and [...] oral route once daily in the evening Flonase Allergy Relief nasal spray,suspension 50 mcg/actuation 09/21/2014 inhale 1 puff by nasal route 2 times a day Name Start Date Expiration Date SIG Comments [...] 3 times per day for 7 days [id number] Otic Solution 3.5-10,000-1 mg-unit/mL- % 05/12/2010 05/19/2010 [...] Reviewed 03/20/2011 12:00 AM Decadron 1 mg [facility] [place][id number] (Trang) Reviewed 03/20/2011 12:00 AM Depo-Medrol 80 mg [facility] [place][id number] Reviewed 06/29/2009 12:00 AM Decadron Inj. 8mg- ([facility] #[id number] Reviewed 06/29/2009 12:00 AM Depo-Medrol 80 Mg Im/[facility]# [id number] Reviewed 09/14/2011 12:00 AM THER/PROPH/DIAG INJ SC/IM Ordered 09/14/2011 12:00 AM Depo-Provera 150 Mg Reviewed 12/13/2011 12:00 AM THER/PROPH/DIAG INJ SC/IM Reviewed 12/13/2011 12:00 AM Depo-Provera 150 Mg Reviewed 03/05/2012 12:00 AM THER/PROPH/DIAG INJ SC/IM Ordered 03/05/2012 12:00 AM Depo-Provera 150 Mg Ordered 03/05/2012 12:00 AM URINE TEST Reviewed 06/12/2012 12:00 AM THER/PROPH/DIAG INJ SC/IM Ordered 06/12/2012 12:00 AM Depo-Provera 150 Mg Ordered 06/12/2012 12:00 AM URINE TEST Reviewed 08/14/2012 12:00 AM THER/PROPH/DIAG INJ SC/IM Reviewed 08/14/2012 12:00 AM Decadron, Per 1 Mg [facility] [place] [id number] Reviewed 08/14/2012 12:00 AM Depo-Medrol, Per 80 Mg [facility] [place]#[id number] Reviewed 09/06/2012 12:00 AM THER/PROPH/DIAG INJ SC/IM Reviewed 09/06/2012 12:00 AM Depo-Provera 150 Mg Reviewed 09/06/2012 12:00 AM URINE TEST Reviewed 12/11/2012 12:00 AM THER/PROPH/DIAG INJ SC/IM Reviewed 12/11/2012 12:00 AM Bicillin CR, 1.2 million units [facility] [place]# [id number] Reviewed 12/11/2012 12:00 AM CHYLMD TRACH DNA AMP PROBE Returned 12/11/2012 12:00 AM N.GONORRHOEAE DNA AMP PROB Returned 12/26/2012 12:00 AM THER/PROPH/DIAG INJ SC/IM Reviewed 12/26/2012 12:00 AM Depo-Provera 150 mg Reviewed 03/14/2013 12:00 AM THER/PROPH/DIAG INJ SC/IM Reviewed 03/14/2013 12:00 AM Depo-Provera 150 mg Reviewed 06/03/2013 12:00 AM THER/PROPH/DIAG INJ SC/IM Reviewed 06/03/2013 12:00 AM Decadron, Per 1 Mg [facility] [place]# [id number] Reviewed 06/03/2013 12:00 AM Depo-Medrol, Per 80 Mg [facility] [place]#[id number] Reviewed 06/03/2013 12:00 AM Depo Provera Injection, 150 mg Reviewed 10/05/2009 12:00 AM Bicillin CR (1.2) [facility] [place] [id number]--[facility] Reviewed 10/05/2009 12:00 AM THER/PROPH/DIAG INJ SC/IM Reviewed 09/01/2013 12:00 AM THER/PROPH/DIAG INJ SC/IM Reviewed 09/01/2013 12:00 AM Depo-Provera 150 mg Reviewed 12/17/2013 12:00 AM THER/PROPH/DIAG INJ SC/IM Reviewed 12/17/2013 12:00 AM Depo Provera Injection, 150 mg Reviewed 03/04/2014 12:00 AM Depo-Provera 150 mg Ordered 07/21/2014 12:00 AM THER/PROPH/DIAG INJ SC/IM Reviewed 07/21/2014 12:00 AM Decadron, Per 1 Mg [facility] [place]# [id number] Reviewed 07/21/2014 12:00 AM Depo-Medrol 40mg Reviewed 09/27/2010 12:00 AM IMMUNIZATION ADMIN Reviewed 09/27/2010 12:00 AM TD VACCINE NO PRSRV 7/> IM Reviewed 09/27/2010 12:00 AM THER/PROPH/DIAG INJ SC/IM Reviewed 09/27/2010 12:00 AM Depo-Medrol 120 Mg Im PAWEL Reviewed 09/01/2014 2:56 PM URINE TEST Reviewed 09/01/2014 12:00 AM THER/PROPH/DIAG INJ SC/IM Reviewed 09/01/2014 12:00 AM Depo Provera Injection, 150 mg Reviewed 09/11/2014 12:00 AM COMPLETE CBC W/AUTO DIFF WBC Ordered 09/11/2014 12:00 AM COMPREHEN METABOLIC PANEL Ordered 09/11/2014 12:00 AM C-REACTIVE PROTEIN Ordered 09/11/2014 12:00 AM RHEUMATOID FACTOR QUANT Ordered 12/24/2014 12:00 AM Depo Provera Injection, 150 mg Ordered 12/24/2014 2:17 PM URINE TEST Reviewed Results Summary Data and Description Results 09/01/2014 2:56 PM HCG Ur Ql neg 12/24/2014 2:17 PM Test, Urine Neg History Of Immunizations Name Date Admin Mfg Name Mfg Code Trade Name Lot# Route Inj Vis Given Vis Pub CVX Td 09/27/2010 sanofi pasteur [facility] DECAVAC [id number] Intramuscular Left Deltoid 09/27/2010 12/13/2007 999 History [...] 9:53AM Contraception management Dec 24 2014 2:17PM Payers Insurance Name Company Name Plan Name Plan Number Policy Number Policy Group Number Start Date [facility] [id number] Monday, 2007 History of Encounters Visit Date Visit Type Provider 12/24/2014 Nurse visit Edelmira Huynh COIN MACHINE SUPERVISOR 12/09/2014 Voided Edelmira Lino COIN MACHINE SUPERVISOR 09/11/2014 Office visit Edelmira Huynh COIN MACHINE SUPERVISOR 09/01/2014 Nurse visit Edelmira Huynh COIN MACHINE SUPERVISOR 07/21/2014 Office visit Edelmira Huynh COIN MACHINE SUPERVISOR 03/11/2014 Office visit Holly Ellis COIN MACHINE SUPERVISOR 03/04/2014 Nurse visit Bernardo Walker COIN MACHINE SUPERVISOR 12/17/2013 Nurse visit Edelmira Huynh COIN MACHINE SUPERVISOR 09/01/2013 Nurse visit Edelmira Huynh COIN MACHINE SUPERVISOR 07/17/2013 Office visit Edelmira Huynh COIN MACHINE SUPERVISOR 06/03/2013 Office visit Edelmira Huynh COIN MACHINE SUPERVISOR 03/14/2013 Nurse visit Bernardo Walker COIN MACHINE SUPERVISOR 12/26/2012 Nurse visit Edelmira Huynh COIN MACHINE SUPERVISOR 12/11/2012 Office visit Edelmira Huynh COIN MACHINE SUPERVISOR 09/06/2012 Nurse visit Holly Ellis COIN MACHINE SUPERVISOR 08/14/2012 Office visit Holly Ellis COIN MACHINE SUPERVISOR 06/12/2012 Voided Edelmira Lino COIN MACHINE SUPERVISOR 06/12/2012 Nurse visit Holly Ellis COIN MACHINE SUPERVISOR 03/05/2012 Nurse visit Edelmira Huynh COIN MACHINE SUPERVISOR 12/13/2011 Nurse visit Edelmira Huynh COIN MACHINE SUPERVISOR 09/14/2011 Nurse visit Edelmira Huynh COIN MACHINE SUPERVISOR 08/29/2011 Office visit Edelmira Huynh COIN MACHINE SUPERVISOR 03/20/2011 Office visit Edelmira Huynh COIN MACHINE SUPERVISOR 09/27/2010 Office visit Marcela Camarena MD 09/06/2010 Office visit Edelmira Huynh COIN MACHINE SUPERVISOR 04/05/2010 Office visit Maira SMITH 01/25/2010 Office visit Sonia LEON 10/05/2009 Office visit Sonia LEON 08/13/2009 Office visit Terrie SMITH 06/29/2009 Office visit Terrie SMITH 06/14/2009 Office visit Terrie SMITH 03/10/2009 Office visit Maira SMITH
--- OUTSIDE RECORDS SUMMARY | 2018-10-13 11:11 | XMS REPORT | Continuity of Care Document ---
Author Organization Unknown Address Unknown Allergies There is no data. Medications There is no data. Problems There is no data. Procedures There is no data. Results There is no data. Encounters ACCT No. Visit Date/Time Discharge Status Pt. Type Provider Facility Loc./Unit Complaint [id number] 07/25/2018 12:14:53 07/25/2018 23:59:59 CLS Outpatient Walker, Edelmira [id number] 11/13/2017 10:26:34 11/13/2017 23:59:59 CLS Outpatient Walker, Edelmira [id number] 12/24/2014 15:00:56 12/24/2014 23:59:59 CLS Outpatient Walker, Edelmira [id number] 12/14/2014 22:32:14 12/14/2014 23:59:59 CLS Outpatient Walker, Edelmira [id number] 09/11/2014 10:47:00 09/11/2014 23:59:59 CLS Outpatient Walker, Edelmira [id number] 09/01/2014 15:36:05 09/01/2014 23:59:59 CLS Outpatient Walker, Edelmira [id number] 03/11/2014 15:35:34 03/11/2014 23:59:59 CLS Outpatient Caleb Hollykarishma Ayers [id number] 03/04/2014 14:33:09 03/04/2014 23:59:59 CLS Outpatient Bernardo Walker [id number] 12/17/2013 16:31:42 12/17/2013 23:59:59 CLS Outpatient Walker, Edelmira [id number] 09/01/2013 15:23:20 09/01/2013 23:59:59 CLS Outpatient Walker, Edelmira [id number] 07/17/2013 11:29:13 07/17/2013 23:59:59 CLS Outpatient Walker, Edelmira [id number] 06/03/2013 09:35:23 06/03/2013 23:59:59 CLS Outpatient Walker, Edelmira [id number] 08/07/2018 12:20:00 08/07/2018 23:59:59 CLS Outpatient HERB GARZA LAC [facility] [id number] 06/02/2014 11:13:11 06/02/2014 23:59:59 CLS Outpatient TAMARA AMAYA [facility] RADIO NEWS ANCHOR est; discuss getting depo jsm
--- OUTSIDE RECORDS SUMMARY | 2018-10-13 11:11 | XMS REPORT ---
Author Author [facility] Organization [facility] Address [address] [place], [place] [address] Care Team Providers Care Third Cook Name Role Phone PCP Unavailable Allergies and [...] 3 times per day for 7 days [id number] Otic Solution 3.5-10,000-1 mg-unit/mL- % 05/12/2010 05/19/2010 [...] CVX Td 09/27/2010 sanofi pasteur [facility] DECAVAC [id number] Intramuscular Left Deltoid 09/27/2010 12/13/2007 999 History [...] Number Start Date [facility] [id number] Monday, 2007 History of Encounters Visit Date Visit Type Provider 09/11/2014 Office visit Edelmira Huynh COLORING MACHINE OPERATOR 09/01/2014 Nurse visit Edelmira Huynh COLORING MACHINE OPERATOR 07/21/2014 Office visit Edelmira Huynh COLORING MACHINE OPERATOR 03/11/2014 Office visit Holly Ellis COLORING MACHINE OPERATOR 03/04/2014 Nurse visit Bernardo Walker COLORING MACHINE OPERATOR 12/17/2013 Nurse visit Edelmira Huynh COLORING MACHINE OPERATOR 09/01/2013 Nurse visit Edelmira Huynh COLORING MACHINE OPERATOR 07/17/2013 Office visit Edelmira Huynh COLORING MACHINE OPERATOR 06/03/2013 Office visit Edelmira Huynh COLORING MACHINE OPERATOR 03/14/2013 Nurse visit Bernardo Walker COLORING MACHINE OPERATOR 12/26/2012 Nurse visit Edelmira Huynh COLORING MACHINE OPERATOR 12/11/2012 Office visit Edelmira Huynh COLORING MACHINE OPERATOR 09/06/2012 Nurse visit Holly Ellis COLORING MACHINE OPERATOR 08/14/2012 Office visit Holly Ellis COLORING MACHINE OPERATOR 06/12/2012 Voided Edelmira Huynh COLORING MACHINE OPERATOR 06/12/2012 Nurse visit Holly Ellis COLORING MACHINE OPERATOR 03/05/2012 Nurse visit Edelmira Huynh COLORING MACHINE OPERATOR 12/13/2011 Nurse visit Edelmira Huynh COLORING MACHINE OPERATOR 09/14/2011 Nurse visit Edelmira Huynh COLORING MACHINE OPERATOR 08/29/2011 Office visit Edelmira Huynh COLORING MACHINE OPERATOR 03/20/2011 Office visit Edelmira Huynh COLORING MACHINE OPERATOR 09/27/2010 Office visit Marcela Camarena MD 09/06/2010 Office visit Edelmira Huynh COLORING MACHINE OPERATOR 04/05/2010 Office visit Maira SMITH 01/25/2010 Office visit Sonia LEON 10/05/2009 Office visit Sonia LEON 08/13/2009 Office visit Terrie SMITH 06/29/2009 Office visit Terrie SMITH 06/14/2009 Office visit Terrie SMITH 03/10/2009 Office visit Maira SMITH
--- OUTSIDE RECORDS SUMMARY | 2018-10-13 11:11 | XMS REPORT ---
Author Author [facility] Organization [facility] Address [address] [place], [place] [address] Care Team Providers Care General Maintenance Mechanic Name Role Phone PCP Unavailable Allergies and Adverse Reactions Name Reaction Notes NO KNOWN DRUG ALLERGIES Plan of Treatment Not available. Medications Active Name Start Date Estimated Completion Date SIG Comments Depo-Provera intramuscular Singulair oral tablet 10 mg 07/17/2013 take 1 tablet (10 mg) by oral route once daily in the evening Claritin-D 12 Hour oral tablet extended release 12 hr 5-120 mg 03/11/2014 take 1 tablet by oral route 2 times per day as needed cyclobenzaprine oral tablet 10 mg Flonase Allergy Relief nasal spray,suspension 50 mcg/actuation 07/21/2014 inhale 1 puff by nasal route daily guaifenesin oral tablet 400 mg 07/21/2014 take 1 tablet by oral route every 6 hours as needed Name Start Date Expiration Date SIG Comments [...] 3 times per day for 7 days [id number] Otic Solution 3.5-10,000-1 mg-unit/mL- % 05/12/2010 05/19/2010 [...] 12 hours as needed for nasal congestion Problem List Description Status Onset ADHD Active Vital Signs Date Time BP-Sys(mm[Hg] BP-Hermelinda(mm[Hg]) HR(bpm) RR(rpm) Temp WT HT HC BMI BSA BMI Percentile O2 Sat(%) 07/21/2014 8:55:00 AM 124 mmHg 62 mmHg [...] CVX Td 09/27/2010 sanofi pasteur PMC DECAVAC [id number] Intramuscular Left Deltoid 09/27/2010 12/13/2007 999 History [...] Contraceptive counseling (Depo-Provera) Sep 01 2014 2:56PM Payers Insurance Name Company Name Plan Name Plan Number Policy Number Policy Group Number Start Date Bcbs Bcbs [facility] [id number] Monday, 2007 History of Encounters Visit Date Visit Type Provider 09/01/2014 Nurse visit Edelmira Huynh MARINE ARCHITECT 07/21/2014 Office visit Edelmira Huynh MARINE ARCHITECT 03/11/2014 Office visit Holly Ellis MARINE ARCHITECT 03/04/2014 Nurse visit Bernardo Walker MARINE ARCHITECT 12/17/2013 Nurse visit Edelmira Huynh MARINE ARCHITECT 09/01/2013 Nurse visit Edelmira Huynh MARINE ARCHITECT 07/17/2013 Office visit Edelmira Huynh MARINE ARCHITECT 06/03/2013 Office visit Edelmira Huynh MARINE ARCHITECT 03/14/2013 Nurse visit Bernardo Walker MARINE ARCHITECT 12/26/2012 Nurse visit Edelmira Huynh MARINE ARCHITECT 12/11/2012 Office visit Edelmira Huynh MARINE ARCHITECT 09/06/2012 Nurse visit Holly Ellis MARINE ARCHITECT 08/14/2012 Office visit Holly Ellis MARINE ARCHITECT 06/12/2012 Voided Edelmira Huynh MARINE ARCHITECT 06/12/2012 Nurse visit Holly Ellis MARINE ARCHITECT 03/05/2012 Nurse visit Edelmira Huynh MARINE ARCHITECT 12/13/2011 Nurse visit Edelmira Huynh MARINE ARCHITECT 09/14/2011 Nurse visit Edelmira Huynh MARINE ARCHITECT 08/29/2011 Office visit Edelmira Huynh MARINE ARCHITECT 03/20/2011 Office visit Edelmira Huynh MARINE ARCHITECT 09/27/2010 Office visit Marcela Camarena MD 09/06/2010 Office visit Edelmira Huynh MARINE ARCHITECT 04/05/2010 Office visit Maira SMITH 01/25/2010 Office visit Sonia LEON 10/05/2009 Office visit Sonia LEON 08/13/2009 Office visit Terrie SMITH 06/29/2009 Office visit Terrie SMITH 06/14/2009 Office visit Terrie SMITH 03/10/2009 Office visit Maira SMITH
--- OUTSIDE RECORDS SUMMARY | 2018-10-13 11:11 | XMS REPORT ---
Author Author YARITZA HARPER [facility] Address [address] [place] [address] Care Team Providers Care Inpatient Services Rn Name Role Phone YARITZA HARPER Unavailable PROBLEMS Type Condition ICD9-CM Code NEB74-IN Code Onset Dates Condition Status SNOMED Code Problem Allergic rhinitis, unspecified allergic rhinitis trigger, unspecified rhinitis seasonality J30.9 Active 85108591 ALLERGIES No Known Allergies SOCIAL HISTORY Never Assessed PLAN OF CARE Activity Details Follow Up prn Reason: VITAL SIGNS Height 64.5 in 2016-07-11 Weight 168.2 lbs 2016-07-11 Temperature 98.0 degrees Fahrenheit 2016-07-11 Heart Rate 82 bpm 2016-07-11 Respiratory Rate 20 2016-07-11 BMI 28.42 kg/m2 2016-07-11 Blood pressure systolic 112 mmHg 2016-07-11 Blood pressure diastolic 60 mmHg 2016-07-11 MEDICATIONS Medication Instructions Dosage Frequency Start Date End Date Duration Status Claritin 10 MG Orally PRN 1 tablet Active Benadryl Active Flonase Allergy Relief 50 MCG/ACT Nasally Once a day 1 spray in each nostril 24h Jul, 30 day(s) Active Zyrtec Allergy 10 mg Orally Once a day 1 tablet 24h Jul, Oct, 30 day(s) Active RESULTS No Results PROCEDURES No Known procedures IMMUNIZATIONS No Known Immunizations MEDICAL (GENERAL) HISTORY Type Description Date Medical History seasonal allergies Surgical History eye surgery
[2018-10-13 11:51] LABS: BILIRUBIN,URINE NEGATIVE (NEGATIVE); CLARITY,URINE CLEAR; COLOR,URINE YELLOW; GLUCOSE, URINE (UA) NEGATIVE (NEGATIVE); KETONES,URINE NEGATIVE (NEGATIVE); LEUKOCYTE ESTERASE ,URINE 1+ (NEGATIVE); NITRITE,URINE NEGATIVE (NEGATIVE); PH,URINE 6 (5-9); PROTEIN,URINE NEGATIVE (NEGATIVE); UROBILINOGEN,URINE NORMAL (NORMAL)
[2018-10-13 11:56] LABS: BASOPHILS % (AUTO) 0 % (0-10); EOSINOPHILS # (AUTO) 0.1 10^3/uL (0.0-0.3); EOSINOPHILS % (AUTO) 3 % (0-10); HEMATOCRIT 40 % (35-52); LYMPHOCYTES # (AUTO) 1.3 X 10^3 (1.0-4.0); LYMPHOCYTES % (AUTO) 28 % (12-44); MEAN CORPUSCULAR HEMOGLOBIN 30 PG (25-34); MEAN CORPUSCULAR HGB CONC 35 G/DL (32-36); MEAN CORPUSCULAR VOLUME 85 FL (80-99); MEAN PLATELET VOLUME 10.9 FL (7.4-10.4); MONOCYTES # (AUTO) 0.4 X 10^3 (0.0-1.0); MONOCYTES % (AUTO) 8 % (0-12); NEUTROPHILS # (AUTO) 2.9 X 10^3 (1.8-7.8); NEUTROPHILS % (AUTO) 62 % (42-75); PLATELET COUNT 223 10^3/uL (130-400); RED CELL DISTRIBUTION WIDTH 12.2 % (10.0-14.5); WHITE BLOOD COUNT 4.7 10^3/uL (4.3-11.0)
[2018-10-13 12:05] LABS: BACTERIA,URINE NEGATIVE /HPF; RBC,URINE 0-2 /HPF; WBC,URINE RARE /HPF
[2018-10-13 12:17] LABS: ALANINE AMINOTRANSFERASE 13 U/L (0-55); ALBUMIN 4.6 GM/DL (3.2-4.5); ALKALINE PHOSPHATASE 58 U/L (40-136); AMYLASE 42 U/L (25-125); BILIRUBIN,TOTAL 1.2 MG/DL (0.1-1.0); BUN/CREATININE RATIO 13; CALCIUM 9.5 MG/DL (8.5-10.1); CARBON DIOXIDE 23 MMOL/L (21-32); CHLORIDE 108 MMOL/L (98-107); CREATININE SERUM 0.83 MG/DL (0.60-1.30); GFR ESTIMATED > 60; GLUCOSE 94 MG/DL (70-105); LIPASE 21 U/L (8-78); SODIUM 138 MMOL/L (135-145); TOTAL PROTEIN 7.1 GM/DL (6.4-8.2)
--- NOTE | 2018-10-13 12:39 | ED Abdominal Pain ---
General Chief Complaint: Rect Problems Stated Complaint: BLOOD IN STOOL Nursing Triage Note: Pt to ED with c/o rectal bleeding that began last night. Pt reports "filling the toilet with dark red blood." Pt reports "pressure" in the lower back and under the left ribs. Pt c/o bloating. Sepsis Screen: No Definite Risk Source of Information: Patient Exam Limitations: No Limitations History of Present Illness Date Seen by Provider: Oct 13, 2018 Time Seen by Provider: 11:13 Initial Comments 23 year old female who presents to the emergency room with complaints of rectal bleeding last night. She reports that after the initial BM with blood it seems to slowing down. She denies fevers. Timing/Duration: 1 Day Severity/Quality: Full Location: Generalized Abdomen Allergies and Home Medications Allergies Coded Allergies: No Known Drug Allergies (Unverified , 10/13/18) Patient Home Medication List Home Medication List Reviewed: Yes Review of Systems Review of Systems Constitutional: see HPI; No chills, No fever Gastrointestinal: See HPI, Rectal Bleeding All Other Systems Reviewed Negative Unless Noted: Yes Past Laplddf-Dvyqun-Fxgugu Hx Past Med/Social Hx: Reviewed Nursing Past Med/Soc Hx Patient Social History Alcohol Use: Occasionally Uses Recreational Drug Use: No Smoking Status: Current Someday Smoker Type Used: Electronic/Vapor 2nd Hand Smoke Exposure: Yes Recent Foreign Travel: No Contact w/Someone Who Travel: No Recent Infectious Disease Expo: No Recent Hopitalizations: No Seasonal Allergies Seasonal Allergies: Yes Past Medical History Surgeries: Yes Eye Surgery Respiratory: No Cardiac: No Neurological: No Last Menstrual Period: Oct 07, 2018 Genitourinary: No Gastrointestinal: No Musculoskeletal: No Endocrine: No HEENT: No Cancer: No Psychosocial: No Integumentary: Yes Eczema Blood Disorders: No Family Medical History Reviewed Nursing Family Hx Physical Exam Vital Signs Vital Signs - First Documented 10/13/18 11:11 Temp 97.6 Pulse 85 Resp 14 B/P (MAP) 125/88 (100) Pulse Ox 96 O2 Delivery Room Air Capillary Refill : Less Than 3 Seconds Height/Weight/BMI Height: 5'5.00" Weight: 170lbs. oz. 77.748179jc; BMI Method:Stated General Appearance: WD/WN, no apparent distress Respiratory: chest non-tender, lungs clear, normal breath sounds, no respiratory distress, no accessory muscle use Cardiovascular: normal peripheral pulses, regular rate, rhythm, no edema, no gallop, no JVD, no murmur Gastrointestinal: normal bowel sounds, non tender, soft, no organomegaly, no pulsatile mass Rectal: normal exam, normal rectal tone, heme positive stool Extremities: normal capillary refill, other (exam was assisted by Betina Armenta) Neurologic/Psychiatric: alert, normal mood/affect, oriented x 3 Skin: normal color, warm/dry Progress/Results/Core Measures Results/Orders Lab Results Laboratory Tests Test 10/13/18 11:35 10/13/18 11:50 Range/Units Urine Color YELLOW Urine Clarity CLEAR Urine pH 6 5-9 Urine Specific Delong 1.020 1.016-1.022 Urine Protein NEGATIVE NEGATIVE Urine Glucose (UA) NEGATIVE NEGATIVE Urine Ketones NEGATIVE NEGATIVE Urine Nitrite NEGATIVE NEGATIVE Urine Bilirubin NEGATIVE NEGATIVE Urine Urobilinogen NORMAL NORMAL MG/DL Urine Leukocyte Esterase 1+ H NEGATIVE Urine RBC (Auto) 3+ H NEGATIVE Urine RBC 0-2 /HPF Urine WBC RARE /HPF Urine Squamous Epithelial Cells 2-5 /HPF Urine Crystals NONE /LPF Urine Bacteria NEGATIVE /HPF Urine Casts NONE /LPF Urine Mucus NEGATIVE /LPF Urine Culture Indicated NO White Blood Count 4.7 4.3-11.0 10^3/uL Red Blood Count 4.72 4.35-5.85 10^6/uL Hemoglobin 14.0 11.5-16.0 G/DL Hematocrit 40 35-52 % Mean Corpuscular Volume 85 80-99 FL Mean Corpuscular Hemoglobin 30 25-34 PG Mean Corpuscular Hemoglobin Concent 35 32-36 G/DL Red Cell Distribution Width 12.2 10.0-14.5 % Platelet Count 223 130-400 10^3/uL Mean Platelet Volume 10.9 H 7.4-10.4 FL Neutrophils (%) (Auto) 62 42-75 % Lymphocytes (%) (Auto) 28 12-44 % Monocytes (%) (Auto) 8 0-12 % Eosinophils (%) (Auto) 3 0-10 % Basophils (%) (Auto) 0 0-10 % Neutrophils # (Auto) 2.9 1.8-7.8 X 10^3 Lymphocytes # (Auto) 1.3 1.0-4.0 X 10^3 Monocytes # (Auto) 0.4 0.0-1.0 X 10^3 Eosinophils # (Auto) 0.1 0.0-0.3 10^3/uL Basophils # (Auto) 0.0 0.0-0.1 10^3/uL Sodium Level 138 135-145 MMOL/L Potassium Level 4.0 3.6-5.0 MMOL/L Chloride Level 108 H 98-107 MMOL/L Carbon Dioxide Level 23 21-32 MMOL/L Anion Gap 7 5-14 MMOL/L Blood Urea Nitrogen 11 7-18 MG/DL Creatinine 0.83 0.60-1.30 MG/DL Estimat Glomerular Filtration Rate > 60 BUN/Creatinine Ratio 13 Glucose Level 94 70-105 MG/DL Calcium Level 9.5 8.5-10.1 MG/DL Corrected Calcium 8.5-10.1 MG/DL Total Bilirubin 1.2 H 0.1-1.0 MG/DL Aspartate Amino Transf (AST/SGOT) 19 5-34 U/L Alanine Aminotransferase (ALT/SGPT) 13 0-55 U/L Alkaline Phosphatase 58 40-136 U/L Total Protein 7.1 6.4-8.2 GM/DL Albumin 4.6 H 3.2-4.5 GM/DL Amylase Level 42 25-125 U/L Lipase 21 8-78 U/L My Orders Orders - CLYDE NEWTON Comprehensive Metabolic Panel (10/13/18 11:13) Lipase (10/13/18 11:13) Amylase (10/13/18 11:13) Ua Culture If Indicated (10/13/18 11:13) Urine Bedside (10/13/18 11:13) Ed Iv/Invasive Line Start (10/13/18 11:13) Cbc With Automated Diff (10/13/18 11:13) Vital Signs/I&O 10/13/18 10/13/18 11:11 14:25 Temp 97.6 97.6 Pulse 85 85 Resp 14 14 B/P (MAP) 125/88 (100) 125/88 (100) Pulse Ox 96 96 O2 Delivery Room Air Room Air Blood Pressure Mean: 100 Progress Progress Note : Time: 13:50 Progress Note I have seen and evaluated the patient. I have informed her of her laboratory studies. I have discussed the patient's case with Dr. Laboy and he wishes to have her follow up with him in his clinic next week. Patient agrees with plan of care, plans for discharge, return precautions were given. Departure Impression Primary Impression: Rectal bleeding Disposition: 01 HOME, SELF-CARE Condition: Stable/Unchanged Departure-Patient Inst. Decision time for Depature: 13:51 Referrals: SHALONDA LABOY,LOCAL PHYSICIAN (PCP) Primary Care Physician Patient Instructions: Bloody Stools, Adult (DC) Add. Discharge Instructions: Call first thing tomorrow morning to schedule an appointment with Dr. Laboy. Follow-up with your primary care provider within 1 week for recheck. Return back to the emergency room for worsening symptoms or concerns as needed. All discharge instructions reviewed with patient and/or family. Voiced understanding. CLYDE NEWTON Oct 13, 2018 12:39
[2018-10-13 14:25] VITALS: BP 125/88
== END 2018-10-13 14:25 | disposition home or self-care (01) ==
LOC: ER 11:05
DX: K62.5 Hemorrhage of anus and rectum (principal); F17.290 Nicotine dependence, other tobacco product, uncomplicated
CPT/HCPCS: 36415; 80053; 81000; 82150; 83690; 84703; 85025

== ENCOUNTER 2018-10-31 09:15 | Outpatient (CLI) | payer BC ==
[~2018-10-31] VITALS: Ht 165.1 cm; Wt 77.1 kg
[2018-10-31] MEDS ORDERED: DIPH25CA79 PO (09:26)
[2018-10-31] MEDS ORDERED: LORA10TA76 PO (09:26)
[2018-10-31] MEDS ORDERED: CETI10TA17 PO (09:26)
[2018-10-31] MEDS ORDERED: FAMO20TA3 PO (09:26)
== END 2018-10-31 09:36 | disposition home or self-care (01) ==
LOC: PREOP 09:15
PROVIDERS: ATTEND Surgery
DX: Z01.818 Encounter for other preprocedural examination (principal)

== ENCOUNTER 2018-11-01 11:37 | Day surgery (SDC) | payer BC ==
[~2018-11-01] VITALS: Ht 165.1 cm; Wt 77.1 kg
[~2018-11-01 11:37] MED LIST: CETI10TA17 PO; DIPH25CA79 PO; FAMO20TA3 PO; LORA10TA76 PO
--- OUTSIDE RECORDS SUMMARY | 2018-11-01 11:44 | XMS REPORT | Continuity of Care Document ---
Author Organization Unknown Address Unknown Allergies There is no data. Medications There is no data. Problems There is no data. Procedures There is no data. Results There is no data. Encounters ACCT No. Visit Date/Time Discharge Status Pt. Type Provider Facility Loc./Unit Complaint [id number] 07/25/2018 12:14:53 07/25/2018 23:59:59 CLS Outpatient Walker, Edelmira [id number] 11/13/2017 10:26:34 11/13/2017 23:59:59 CLS Outpatient Walker, Edelmira [id number] 12/24/2014 15:00:56 12/24/2014 23:59:59 CLS Outpatient Walker, Edelmira [id number] 12/14/2014 22:32:14 12/14/2014 23:59:59 CLS Outpatient Walker, Edelmira [id number] 09/11/2014 10:47:00 09/11/2014 23:59:59 CLS Outpatient Walker, Edelmira [id number] 09/01/2014 15:36:05 09/01/2014 23:59:59 CLS Outpatient Walker, Edelmira [id number] 03/11/2014 15:35:34 03/11/2014 23:59:59 CLS Outpatient Caleb Hollykarishma Ayers [id number] 03/04/2014 14:33:09 03/04/2014 23:59:59 CLS Outpatient Bernardo Walker [id number] 12/17/2013 16:31:42 12/17/2013 23:59:59 CLS Outpatient Walker, Edelmira [id number] 09/01/2013 15:23:20 09/01/2013 23:59:59 CLS Outpatient Walker, Edelmira [id number] 07/17/2013 11:29:13 07/17/2013 23:59:59 CLS Outpatient Walker, Edelmira [id number] 06/03/2013 09:35:23 06/03/2013 23:59:59 CLS Outpatient Walker, Edelmira [id number] 08/07/2018 12:20:00 08/07/2018 23:59:59 CLS Outpatient HERB GARZA [facility] [id number] 06/02/2014 11:13:11 06/02/2014 23:59:59 CLS Outpatient TAMARA AMAYA [facility] COST CLERK est; discuss getting depo jsm
[2018-11-01 11:45] VITALS: BP 111/83
[2018-11-01] MEDS ORDERED: LACTATED RINGERS 1,000 ML IV STA (11:59)
[2018-11-01] MEDS ORDERED: HURRICAINE EXT TUBE (BENZOCAINE) XX PRN (12:00)
[2018-11-01] MEDS ORDERED: LACTATED RINGERS 1,000 ML IV ONE (12:04)
[2018-11-01] MEDS ORDERED: MIDAZOLAM 2 MG/2 ML (VERSED) VIAL ONE ×2 (14:37→14:53)
[2018-11-01] MEDS ORDERED: PROPOFOL INJECTION 50 ML IV ONE (14:37)
[2018-11-01] MEDS ORDERED: HURRICAINE EXT TUBE (BENZOCAINE) ONE (14:44)
--- NOTE | 2018-11-01 14:55 | Progress Note-Pre Operative ---
Pre-Operative Progress Note H&P Reviewed The H&P was reviewed, patient examined and no changes noted. Date Seen by Provider: Nov 01, 2018 Time Seen by Provider: 14:39 Date H&P Reviewed: Nov 01, 2018 Time H&P Reviewed: 14:39 Pre-Operative Diagnosis: gerd, blood in stool SHALONDA ARREOLA DO Nov 01, 2018 14:55
[2018-11-01 15:35] VITALS: BP 115/59
--- NOTE | 2018-11-01 16:02 | Progress Note-Post Operative ---
Post-Operative Progess Note Surgeon (s)/Lead Miner Blasting (s) Surgeon SHALONDA ARREOLA DO Lead Miner Blasting: na Pre-Operative Diagnosis gerd, blood in stool Post-Operative Diagnosis hiatal hernia, normal colon Procedure & Operative Findings Date of Procedure 11/01/18 Procedure Performed/Findings egd c biopsies, colonoscopy Anesthesia Type per master ocean yacht Estimated Blood Loss Estimated blood loss (mL): none Specimens/Packing Specimens Removed antrum, ge SHALONDA ARREOLA DO Nov 01, 2018 16:02
--- NOTE | 2018-11-01 16:02 | Discharge Inst-Simple/Standard ---
Discharge Inst-Standard Patient Instructions/Follow Up Plan of Care/Instructions/FU: 2 weeks Narda Activity as Tolerated: Yes Discharge Diet: Regular Diet SHALONDA ARROELA DO Nov 01, 2018 16:02
[2018-11-01 16:05] VITALS: BP 120/78
[2018-11-01 16:10] VITALS: BP 120/78
--- NOTE | 2018-11-01 20:42 | OPERATIVE REPORT ---
DATE OF SERVICE: 11/01/2018 PREOPERATIVE DIAGNOSES: Blood in the stool, gastroesophageal reflux disease. POSTOPERATIVE DIAGNOSIS: Hiatal hernia. PROCEDURE: EGD with biopsies and colonoscopy. SURGEON: Shiv Laboy DO ANESTHESIA: Per ELECTROTYPE MOLDER. ESTIMATED BLOOD LOSS: None. COMPLICATIONS: None. INDICATIONS: The patient is a 23-year-old female who had episode of bright red bleeding in her stools and also has had increasing reflux. She understands risks and benefits of procedure and wished to proceed with procedure. Consent was signed in the chart. DESCRIPTION OF PROCEDURE: The patient was taken to the endoscopy suite, placed in the left lateral recumbent position. Timeout was performed. Scope was inserted back of the esophagus, stomach and duodenum without difficulty. There were no polyps, mass or ulcerations within the duodenum. Scope was slowly retracted back into the stomach, which was further insufflated. There were no polyps, masses or ulcerations within the stomach. Scope was retroflexed noting a small hiatal hernia. No other pathology noted. Scope was returned to its normal position and biopsy of the antrum was obtained. Scope was then slowly retracted back into the distal esophagus, which had no polyps, masses, ulcerations or any significant erythematous changes. Biopsy of the GE junction was obtained. Scope was then slowly retracted back to completely remove, noting no other pathology. Digital rectal exam was performed. There were no palpable polyps, masses or ulcerations. No evidence of any fissure. Scope was inserted in the rectum and advanced all the way to the cecum with minimal difficulty. Prep was adequate. Scope was then slowly retracted back. There were no polyps, mass or ulcerations in the cecum, ascending, transverse, descending and sigmoid colon. Once in the rectum, scope was retroflexed noting no other pathology. Scope was returned to its normal position, slowly withdrawn until completely removed noting no other pathology. The patient tolerated procedure well without any complications. She was taken to the recovery room in stable condition. RECOMMENDATIONS: The patient will continue on current medications. If her symptoms of reflux have not improved at time of visit, would consider changing her medications. There was no evidence of any causes of her bleeding. If she has any return of bleeding, she should be reevaluated at that time. Otherwise, go by routine screening guidelines for next colonoscopy. Job ID: [id number] DocumentID: [id number] Dictated Date: 11/01/2018 19:21:02 Director Of Physician Practices Date: 11/01/2018 20:41:29 Dictated By: DO MANUEL SMITH
== END 2018-11-01 16:10 | disposition home or self-care (01) ==
LOC: ENDO 11:37
PROVIDERS: ATTEND Surgery
DX: K92.1 Melena (principal); K21.9 Gastro-esophageal reflux disease without esophagitis; K44.9 Diaphragmatic hernia without obstruction or gangrene; J30.9 Allergic rhinitis, unspecified; F41.9 Anxiety disorder, unspecified; F17.210 Nicotine dependence, cigarettes, uncomplicated; Z79.899 Other long term (current) drug therapy
CPT/HCPCS: 84703

== ENCOUNTER → 2020-08-26 | Outpatient (CLI) | payer BC ==
--- NOTE | 2020-08-26 08:56 | Diagnostic Imaging Report ---
PROCEDURE: US Thyroid. TECHNIQUE: Multiple Real-time grayscale images were obtained of the thyroid in various projections. INDICATION: Nontoxic solitary thyroid nodule. COMPARISON: I have no previous for comparison. FINDINGS: The right thyroid lobe measures 3.9 x 1.7 x 1.6 cm. The left lobe is 4.2 x 1.1 x 1.5 cm. Both are within normal limits for size. The 3 mm isthmus is normal in size. There is a solitary well-defined hypoechoic nodule in the right mid to lower pole posteriorly measuring 7 mm in long axis. No demonstrated vascularity on color Doppler; however, it is unclear if this is solid or cystic. IMPRESSION: Solitary subcentimeter hypoechoic right lobe thyroid nodule could be solid or cystic but shows no detectable color Doppler flow. Consider its followup in 1 year. Per the provided history, it is assumed that there are outside exams that have documented this finding as it would likely be nonpalpable. If outside studies exist and are submitted for comparison, I would provide an addendum addressing change and/or stability upon receipt. Dictated by: Dictated on workstation # [id number]
--- NOTE | 2020-08-26 08:56 | Diagnostic Imaging Report ---
PROCEDURE: US Gallbladder. TECHNIQUE: Multiple Real-time grayscale images were obtained over the right upper quadrant in various projections. INDICATION: Epigastric pain. FINDINGS: Grayscale imaging of the gallbladder reveals no intraluminal filling defect. There is no gallbladder wall thickening or pericholecystic fluid. No intra or extrahepatic biliary ductal dilatation is identified. No pancreatic, right renal, abdominal aortic, or inferior vena caval abnormality is documented. No ascites was noted. IMPRESSION: Unremarkable gallbladder ultrasound. Dictated by: Dictated on workstation # [id number]
== END ==
LOC: RAD 07:51
PROVIDERS: ATTEND Surgery
DX: E04.1 Nontoxic single thyroid nodule (principal); R10.13 Epigastric pain
CPT/HCPCS: 76536; 76705